=== PATIENT | female | born 1985 | race Two or more races ===

== ENCOUNTER 2024-09-25 13:59 | Emergency (ER) | payer MEDICAID, OTHER ==
[~2024-09-25] VITALS: Ht 170.2 cm; Wt 80.7 kg
[2024-09-25 14:53] VITALS: BP 115/78; PULSE 122; RESP 18; TEMP 99.2; O2SAT 100
--- NOTE | 2024-09-25 15:08 | ED.PDOC ---
History of Present Illness HPI Comments 38 year old female presents to the ED with chief complaint of N/V and syncope. Patient reports that she has been having multiple episodes of syncope with associated nausea, vomiting, and dizziness for the past week. Patient relays that she has history of anemia and has needed to get transfused with blood in the past, but it has been a long time and she is currently on iron supplements. Patient states her symptoms have worsened for the past 2 days. Patient denies any chest pain, SOB, headache, abdominal pain, diarrhea, hematemesis, or vaginal bleeding. Chief Complaint: Nausea/Vomiting Time Seen by MD: 15:04 Reviewed Notes: Nurses Notes, Medications, Allergies Allergies: Uncoded Allergies: PENICILLLIN (Allergy, Unknown, 09/25/24) Home Meds Active Scripts Nitrofurantoin Monohydrate Mac (Macrobid) 100 Mg Cap, 100 MG PO BID for 7 Days, #14 CAP Prov:MARIA DEL CARMEN ROBISON MD 09/25/24 Information Source: Patient Mode of Arrival: Ambulatory Severity: Moderate Timing: Weeks Duration: Since onset Prehospital treatment: None Past Medical History PAST MEDICAL HISTORY: Anemia Surgical History (Other): Gastric bypass, toe surgery NURSERY TECHNICIAN History: Denies all NURSERY TECHNICIAN Hx Family History Family History: Reviewed,noncontributory to illness Social History Smoker: Non-Smoker Alcohol: Denies ETOH Use Drugs: Denies Drug Use Lives In: Home Constitutional: reports: weakness; denies: chills, diaphoresis, fatigue, fever, malaise, sweats, others EENTM: denies: blurred vision, double vision, ear bleeding, ear discharge, ear drainage, ear pain, ear ringing, eye pain, eye redness, hearing loss, mouth pain, mouth swelling, nasal discharge, nose bleeding, nose congestion, nose pain, photophobia, tearing, throat pain, throat swelling, voice changes, others Respiratory: denies: cough, hemoptysis, orthopnea, SOB at rest, shortness of breath, SOB with excertion, stridor, wheezing, others Cardiovascular: reports: syncope; denies: chest pain, dizzy spells, diaphoresis, Dyspnea on exertion, edema, irregular heart beat, left arm pain, lightheadedness, palpitations, PND, others Gastrointestinal: reports: nausea, vomiting; denies: abdomen distended, abdominal pain, blood streaked bowels, constipated, diarrhea, dysphagia, difficu lty swallowing, hematemesis, melena, poor appetite, poor fluid intake, rectal bleeding, rectal pain, others Genitourinary: denies: abnormal vagina bleeding, burning, dyspareunia, dysuria, flank pain, frequency, hematuria, incontinence, pain, , vagina discharge, urgency, others Neurological: reports: dizziness, fainting; denies: headache, left sided numbness, left sided weakness, numbness, paresthesia, pre-existing deficit, right sided numbness, right sided weakness, seizure, speech problems, tingling, tremors, weakness, others Musculoskeletal: denies: back pain, gout, joint pain, joint swelling, muscle pain, muscle stiffness, neck pain, others Integumetry: denies: bruises, change in color, change in hair/nails, dryness, laceration, lesions, lumps, rash, wounds, others Allergic/Immunocompromised: denies: Difficulty Healing, Frequent Infections, Hives, Itching, others Hematologic/Lymphatic: denies: anemia, blood clots, easy bleeding, easy bruising, swollen glands, others Endocrine: denies: excessive hunger, excessive sweating, excessive thirst, excessive urination, flushing, intolerance to cold, intolerance to heat, unexplained weight gain, unexplained weight loss, others Psychiatric: denies: anxiety, bipolar disorder, depression, hopeless, panic disorder, schizophrenia, sleepless, suicidal, others All Other Systems: Reviewed and Negative Physical Exam General Appearance: Moderate Distress, Normal HEENT: Normal ENT Inspection, PERRL/EOMI Neck: Full Range of Motion, Non-Tender, Normal, Normal Inspection Respiratory: Chest Non-Tender, Lungs Clear, No Accessory Muscle Use, No Respiratory Distress, Normal Breath Sounds Cardiovascular: No Edema, No JVD, No Murmur, No Gallop, Normal Peripheral Pulses, Tachycardia Breast Exam: Deferred Gastrointestinal: No Organomegaly, Non Tender, No Pulsatile Mass, Normal Bowel Sounds, Soft Genitalia: Deferred Pelvic: Deferred Rectal: Deferred Extremities: No calf tenderness, Normal capillary refill, Normal inspection, Normal range of motion, Non-tender, No pedal edema Musculoskeletal : Apperance: Normal Neurologic: Alert, mixing plant operator II-XII nml as Tested, No Motor Deficits, Normal Affect, Normal Mood, No Sensory Deficits Cerebellar Function: Normal Reflexes: Normal Skin: Dry, Normal Color, Warm Peripheral Pulses: 3+ Radial (R), 3+ Radial (L) Lymphatic: No Adenopathy Was a procedure done? Was a procedure done?: No Differential Dx Considerations may include: Anemia Electrolyte imbalance X-Ray, Labs, Meds, VS Vital Signs Date Time Temp Pulse Resp B/P (MAP) Pulse Ox O2 Delivery O2 Flow Rate FiO2 09/25/24 14:53 99.2 122 18 115/78 (90) 100 99.2 Lab Test 09/25/24 15:20 09/25/24 14:45 Range/Units White Blood Count 11.2 H 4.4-10.8 10^3/uL Red Blood Count 4.32 4.0-5.20 10^6/uL Hemoglobin 7.2 L 12.2-16.2 g/dL Hematocrit 25.1 L 36.0-46.0 % Mean Corpuscular Volume 58.0 L 80.0-100.0 fL Mean Corpuscular Hemoglobin 16.7 L 28.0-32.0 pg Mean Corpuscular Hemoglobin Concent 28.8 L 32.0-36.0 g/dL Red Cell Distribution Width 19.8 H 11.8-14.3 % Platelet Count 676 H 140-450 10^3/uL Mean Platelet Volume 6.8 L 6.9-10.8 fL Neutrophils (%) (Auto) 90.9 H 37.0-80.0 % Lymphocytes (%) (Auto) 5.2 L 10.0-50.0 % Monocytes (%) (Auto) 3.2 0.0-12.0 % Eosinophils (%) (Auto) 0.3 0.0-7.0 % Basophils (%) (Auto) 0.4 0.0-2.0 % Neutrophils # (Auto) 10.2 H 1.6-8.6 10 ^3/uL Lymphocytes # (Auto) 0.6 0.4-5.4 10 ^3/uL Monocytes # (Auto) 0.4 0-1.3 10 ^3/uL Eosinophils # (Auto) 0 0-0.8 10 ^3/uL Basophils # (Auto) 0 0-0.2 10 ^3/uL Nucleated Red Blood Cells 0.2 % Sodium Level 137 136-145 mmol/L Potassium Level 3.6 3.5-5.1 mmol/L Chloride Level 105 98-107 mmol/L Carbon Dioxide Level 25 20-31 mmol/L Anion Gap 7 5-15 Blood Urea Nitrogen 10 9-23 mg/dL Creatinine 0.71 0.550-1.02 mg/dL Glomerular Filtration Rate Calc 113 >90 mL/min BUN/Creatinine Ratio 14.1 10.0-20.0 Serum Glucose 112 H 74-106 mg/dL Calcium Level 9.3 8.7-10.4 mg/dL Urine Color Yellow Yellow Urine Clarity Turbid H Clear Urine pH 6.0 5.0-9.0 Urine Specific Bradford 1.043 H 1.001-1.035 Urine Protein 1+ H Negative Urine Ketones Trace Negative Urine Blood Trace H Negative /uL Urine Nitrite Negative Negative Urine Bilirubin Negative Negative Urine Urobilinogen Normal Negative mg/dL Urine Leukocyte Esterase 3+ Negative /uL Urine RBC 10 0 - 4 /hpf Urine Microscopic WBC 6 H 0-5 /HPF Urine Squamous Epithelial Cells Many <5 /hpf Urine Bacteria Few H None Seen /hpf Urine Mucus Few None Seen Urine Glucose Trace Normal mg/dL Patient alert. Anxious. History of anemia. Vitals stable. Good respiratory rate. Saturation pristine on room air. Abdomen is soft nontender. She did have bariatric surgery. She is taking iron. Reviewed her history. Mild anemia. She was told to continue taking her iron. Urinalysis shows UTI. Was given Rocephin. Was given prescription of Macrobid antibiotic. No sign of any sepsis. No leg swelling. Ambulating without difficulty. Walking a straight line. Explained to the patient. Was told to follow up with her primary care physician. Was told to come back if there is any problem. Explained to the patient that her hemoglobin is above seven. She instead to have blood transfusion. She stated that she will go to another physician that we will give blood transfusion. Explained to her diagnosis pyelonephritis. She was given antibiotics to go but she insists on being admitted. Time of 1ST Reevaluation: 16:04 Reevaluation 1ST: Unchanged Patient Education/Counseling: Diagnosis, Treatment Family Education/Counseling: No Family Present Additional Information Previous visit documents reviewed: None The following tests were ordered, and results were reviewed by me: CBC, BMP Additional Information was gathered from interviewing the following independent historians: None I reviewed and agreed with the following test results read by other providers: None I discussed treatment and results with medical personnel and: Patient Departure 1 Departure Time of Disposition: 15:23 Impression: Primary Impression: Symptomatic anemia Additional Impression: Pyelonephritis Disposition: ADMITTED INPATIENT Admit to: Med Surg Condition: Guarded e-Prescriptions Nitrofurantoin Monohydrate Mac (Macrobid) 100 Mg Cap 100 MG PO BID for 7 Days, #14 CAP Prov: MARIA DEL CARMEN ROBISON MD 09/25/24 Discharged With: Self Critical Care Note Critical Care Time?: No Stability Stability form required: No Heart Score Heart Score: Heart Score Response (Comments) Value History N/A 0 EKG N/A 0 Age N/A 0 Risk Factors N/A 0 Troponin N/A 0 Total 0 I personally scribed for MARIA DEL CARMEN ROBISON MD ([email or web address]) on 09/25/24 at 15:08. Electronically submitted by Dagoberto Manzanares ([email or web address]). MARIA DEL CARMEN ROBISON MD Sep 25, 2024 15:08
[2024-09-25 15:45] LABS: Eosinophils # (auto) 0 10 ^3/uL (0-0.8); Hemoglobin 7.2 g/dL (12.2-16.2); Lymphocytes # (auto) 0.6 10 ^3/uL (0.4-5.4); Monocytes # (auto) 0.4 10 ^3/uL (0-1.3)
[2024-09-25 15:47] LABS: Basophils # (auto) 0 10 ^3/uL (0-0.2); Basophils % (auto) 0.4 % (0.0-2.0); Eosinophils % (auto) 0.3 % (0.0-7.0); Hematocrit 25.1 % (36.0-46.0); Lymphocytes % (auto) 5.2 % (10.0-50.0); Mean Corpuscular Hemoglobin 16.7 pg (28.0-32.0); Mean Corpuscular Hgb Conc. 28.8 g/dL (32.0-36.0); Monocytes % (auto) 3.2 % (0.0-12.0); Neutrophils # (auto) 10.2 10 ^3/uL (1.6-8.6); Neutrophils % (auto) 90.9 % (37.0-80.0); Nucleated Red Blood Cells % 0.2 %; Platelet Count (auto) 676 10^3/uL (140-450); Red Blood Cells 4.32 10^6/uL (4.0-5.20); Red Cell Distribution Width 19.8 % (11.8-14.3); White Blood Cell 11.2 10^3/uL (4.4-10.8)
[2024-09-25 15:51] LABS: Chloride 105 mmol/L (98-107); Potassium 3.6 mmol/L (3.5-5.1); Sodium 137 mmol/L (136-145)
[2024-09-25 15:52] LABS: Anion Gap 7 (5-15); Calcium 9.3 mg/dL (8.7-10.4); Carbon Dioxide 25 mmol/L (20-31)
[2024-09-25 15:57] LABS: BUN/Creatinine Ratio 14.1 (10.0-20.0); Blood Urea Nitrogen 10 mg/dL (9-23)
[2024-09-25 16:06] LABS: Glucose 112 mg/dL (74-106)
[2024-09-25 16:17] LABS: Urine Bacteria FEW /hpf (None Seen); Urine Blood TRACE /uL (Negative); Urine Clarity Turbid (Clear); Urine Color Yellow (Yellow); Urine Mucus FEW (None Seen); Urine Protein, UAD 1+ (Negative); Urine Specific Gravity 1.043 (1.001-1.035); Urine Squamous Epithelial Cell MANY /hpf (<5); Urine Urobilinogen Normal (Negative); Urine WBC 6 /HPF (0-5)
[2024-09-25] MEDS ORDERED: NITR-87 PO (17:04)
[2024-09-25] MEDS ORDERED: cefTRIAXone SOD 1,000 MG VL IM ONE (17:15)
[2024-09-25] MEDS ORDERED: HYDROcodone-ACET 5/325MG TAB PO PRN (21:00)
[2024-09-25] MEDS ORDERED: ACETAMINOPHEN 325 MG TAB PO PRN (21:00)
[2024-09-25] MEDS ORDERED: PANTOPRAZOLE 40 MG/10 ML VIAL INJ IV ONE (21:00)
[2024-09-25] MEDS ORDERED: DOCUSATE SOD 100 MG CAP PO PRN (21:00)
[2024-09-25] MEDS ORDERED: SODIUM CHLORIDE 0.9% 1,000 ML IV SCH (21:00)
[2024-09-25] MEDS ORDERED: ONDANSETRON HCL 4 MG/2 ML VIAL IV PRN (21:00)
[2024-09-26] MEDS ORDERED: PANTOPRAZOLE 40 MG/10 ML VIAL INJ IV SCH (10:00)
[2024-09-26] MEDS ORDERED: levoFLOXacin 500MG 100 ML IV SCH (10:00)
== END 2024-09-25 22:30 | disposition left against medical advice (07) ==
LOC: ER 13:59
DX: D64.9 Anemia, unspecified (principal); N12 Tubulo-interstitial nephritis, not specified as acute or chronic; Z98.890 Other specified postprocedural states
CPT/HCPCS: 36415; 80048; 81001; 85025

== ENCOUNTER 2025-05-25 09:07 | Emergency (ER) | payer BC, MEDICAID ==
[~2025-05-25] VITALS: Ht 170.2 cm; Wt 71.0 kg
[~2025-05-25 09:07] MED LIST: NITR-87 PO
[2025-05-25 09:09] VITALS: BP 143/86; PULSE 117; RESP 18; TEMP 98.4; O2SAT 100
--- NOTE | 2025-05-25 10:09 | ED.PDOC ---
Musculoskeletal HPI Comments A 39 YEAR OLD FEMALE PRESENTS TO THE ED WITH COMPLAINT OF RIGHT HAND PAIN . PATIENT STATES YESTERDAY SHE HIT HER RIGHT HAND ON A SHELF IN ANGER. PATIENT STATES SINCE SHE HAS BEEN HAVING RIGHT HAND PAIN BY HER 3RD AND 4TH FINGER ON THE DORSAL ASPECT. PATIENT STATES SINCE SHE HAS BEEN HAVING PAIN WITH DECREASED MOVEMENT OF HER FINGERS AND CAME TO THE ED FOR EVALUATION. PATIENT DENIES FEVER, CHILLS, SHORTNESS OF BREATH, CHEST PAIN, ABDOMINAL PAIN, NAUSEA, VOMITING, HEADACHE, OR OTHER COMPLAINTS. NO OTHER SYMPTOMS OR MODIFYING FACTORS AT THIS TIME. PATIENT IS ALERT, ORIENTED X 4, AND HAS STEADY GAIT. Chief Complaint: Upper Extremity Time Seen by MD: 10:06 Reviewed Notes: Nurses Notes, Medications, Allergies Allergies: Uncoded Allergies: PENICILLLIN (Allergy, Unknown, 09/25/24) Home Meds Active Scripts Nitrofurantoin Monohydrate Mac (Macrobid) 100 Mg Cap, 100 MG PO BID for 7 Days, #14 CAP Prov:MARIA DEL CARMEN ROBISON MD 09/25/24 Information Source: Patient Mode of Arrival: Ambulatory Brought in by: SELF Location: Right Extremity Location: Finger 3, Finger 4 Timing: Hours Prehospital treatment: None Severity: Moderate Able to Move Extremity: Yes Bear Weight: Fully Pain: Moderate Hand Dominance: Right Mechanism: Punch Circumstances: Accident Symptoms: Pain DVT Risk Factors: NONE Last Tetanus: UTD Associated signs and symptoms: None Past Medical History PAST MEDICAL HISTORY: Anemia Surgical History: Denies all surgeries SURGICAL ASSIST History: Denies all SURGICAL ASSIST Hx Family History Family History: Reviewed,noncontributory to illness Social History Smoker: Non-Smoker Alcohol: Denies ETOH Use Drugs: Denies Drug Use Lives In: Home Constitutional: denies: chills, diaphoresis, fatigue, fever, malaise, sweats, weakness, others EENTM: denies: blurred vision, double vision, ear bleeding, ear discharge, ear drainage, ear pain, ear ringing, eye pain, eye redness, hearing loss, mouth pain, mouth swelling, nasal discharge, nose bleeding, nose congestion, nose pain, photophobia, tearing, throat pain, throat swelling, voice changes, others Respiratory: denies: cough, hemoptysis, orthopnea, SOB at rest, shortness of breath, SOB with excertion, stridor, wheezing, others Cardiovascular: denies: chest pain, dizzy spells, diaphoresis, Dyspnea on exertion, edema, irregular heart beat, left arm pain, lightheadedness, palpitations, PND, syncope, others Gastrointestinal: denies: abdomen distended, abdominal pain, blood streaked bowels, constipated, diarrhea, dysphagia, difficulty swallowing, hematemesis, melena, nausea, poor appetite, poor fluid intake, rectal bleeding, rectal pain, vomiting, others Genitourinary: denies: abnormal vagina bleeding, burning, dyspareunia, dysuria, flank pain, frequency, hematuria, incontinence, pain, , vagina discharge, urgency, others Neurological: denies: dizziness, fainting, headache, left sided numbness, left sided weakness, numbness, paresthesia, pre-existing deficit, right sided numbness, right sided weakness, seizure, speech problems, tingling, tremors, weakness, others Musculoskeletal: reports: joint pain (R HAND); denies: back pain, gout, joint swelling, muscle pain, muscle stiffness, neck pain, others Integumetry: denies: bruises, change in color, change in hair/nails, dryness, laceration, lesions, lumps, rash, wounds, others Allergic/Immunocompromised: denies: Difficulty Healing, Frequent Infections, Hives, Itching, others Hematologic/Lymphatic: denies: anemia, blood clots, easy bleeding, easy bruising, swollen glands, others Endocrine: denies: excessive hunger, excessive sweating, excessive thirst, excessive urination, flushing, intolerance to cold, intolerance to heat, unexplained weight gain, unexplained weight loss, others Psychiatric: denies: anxiety, bipolar disorder, depression, hopeless, panic disorder, schizophrenia, sleepless, suicidal, others All Other Systems: Reviewed and Negative Physical Exam General Appearance: No Apparent Distress, Normal HEENT: Normal ENT Inspection, PERRL/EOMI, Pharynx Normal, TMs Normal Neck: Full Range of Motion, Non-Tender, Normal, Normal Inspection Respiratory: Chest Non-Tender, Lungs Clear, No Accessory Muscle Use, No Respiratory Distress, Normal Breath Sounds Cardiovascular: No Edema, No JVD, No Murmur, No Gallop, Normal Peripheral Pulses, Regular Rate/Rhythm Breast Exam: Deferred Gastrointestinal: No Organomegaly, Non Tender, No Pulsatile Mass, Normal Bowel Sounds, Soft Genitalia: Deferred Pelvic: Deferred Rectal: Deferred Extremities: No calf tenderness, Normal capillary refill, Normal range of motion, No pedal edema, Tender (on right dorsal hand, no bony tenderness, swelling and deformity. ) Musculoskeletal : Apperance: Normal Neurologic: Alert, corporate accounting manager II-XII nml as Tested, No Motor Deficits, Normal Affect, Normal Mood, No Sensory Deficits Cerebellar Function: Normal Reflexes: Normal Skin: Dry, Normal Color, Warm Peripheral Pulses: 2+ carotid (R), 2+ carotid (L), 2+ Radial (R), 2+ Radial (L) Lymphatic: No Adenopathy Was a procedure done? Was a procedure done?: No Differential Diagnosis EXT Differential Diagnosis: Fracture, Sprain, Strain, Bursitis X-Ray, Labs, Meds, VS Vital Signs Date Time Temp Pulse Resp B/P (MAP) Pulse Ox O2 Delivery O2 Flow Rate FiO2 05/25/25 09:09 98.4 117 18 143/86 100 98.4 X-Ray, Labs, Meds, VS Comment COURSE: EXTERNAL MEDICAL RECORDS REVIEWED: [NONE] INDEPENDENT HISTORIANS: [NONE] SOCIAL DETERMINANTS OF HEALTH: [NONE] LABS ORDERED: NONE REVIEWED AND INTERPRETED RESULTS: NONE IMAGING ORDERED: RIGHT HAND X-RAY: NORMAL TREATMENTS ORDERED: NONE PROCEDURES PERFORMED: NONE CRITICAL CARE TIME: NONE I HAVE DISCUSSED THE PATIENT WITH THE ATTENDING PHYSICIAN DR. ALVAREZ AND HE AGREES WITH THE PATIENT'S PLAN OF CARE AND DISPOSITION. BASED ON HISTORY OF PRESENT ILLNESS, AND PHYSICAL EXAM, PATIENT WILL BE DISCHARGED HOME. SHARED DECISION MAKING: DISCUSSED WITH PATIENT THAT THEIR WORKUP WAS NORMAL. PATIENT INSTRUCTED TO FOLLOW UP WITH PRIMARY CARE PROVIDER IN 1-2 DAYS FOR RE- EVALUATION OF SYMPTOMS. PATIENT VERBALIZES UNDERSTANDING TO RETURN TO ED FOR NEW OR WORSENING SYMPTOMS OR IF FOLLOW UP WITH PCP CANNOT BE OBTAINED. PATIENT FEELS COMFORTABLE GOING HOME AT THIS TIME. ALL QUESTIONS ADDRESSED AT TIME OF DISCHARGE. Images Reviewed?: Images reviewed and evaluated by me Time of 1ST Reevaluation: 10:40 Reevaluation 1ST: Improved Patient Education/Counseling: Diagnosis, Treatment, Need For Follow Up Family Education/Counseling: Diagnosis, Treatment, Need For Follow Up Medical Screening: No EMC Exist At This Time Departure 1 Departure Time of Disposition: 10:36 Impression: Primary Impression: Sprain of right hand Qualified Codes: S63.91XA - Sprain of unspecified part of right wrist and hand, initial encounter Disposition: 01 HOME / SELF CARE / HOMELESS Condition: Stable Additional Instructions: INSTRUCTIONS: FOLLOW-UP WITH PCP IN 1 TO 2 DAYS. TAKE MEDICATIONS PRESCRIBED. RETURN TO ED FOR ANY NEW OR WORSENING SYMPTOMS. Discharged With: Self Critical Care Note Critical Care Time?: No Stability Stability form required: No Heart Score Heart Score: Heart Score Response (Comments) Value History N/A 0 EKG N/A 0 Age N/A 0 Risk Factors N/A 0 Troponin N/A 0 Total 0 I personally scribed for MIRIAM URBANO ([email or web address]) on 05/25/25 at 10:09. Electronically submitted by Reta Cummings ([email or web address]). MIRIAM URBANO May 25, 2025 10:09
--- NOTE | 2025-05-25 10:41 | DVH ---
CLINICAL INDICATION: INJURY TECHNIQUE: XY R HAND 3 VIEW XRAY Comparison: None FINDINGS/IMPRESSION: : There is no evidence of acute fracture or dislocation. Soft tissues are unremarkable.
== END 2025-05-25 10:44 | disposition home or self-care (01) ==
LOC: ER 09:07
DX: S63.91XA Sprain of unspecified part of right wrist and hand, initial encounter (principal); D64.9 Anemia, unspecified; Z88.0 Allergy status to penicillin; W22.8XXA Striking against or struck by other objects, initial encounter; Y93.89 Activity, other specified; Y92.89 Other specified places as the place of occurrence of the external cause; Y99.8 Other external cause status
CPT/HCPCS: 73130